=== PATIENT | male | born 1980 | race Caucasian/White ===

== ENCOUNTER 2021-03-08 20:26 | Emergency (ER) | payer MEDICAID, SELFPAY ==
[~2021-03-08] VITALS: Ht 172.7 cm; Wt 58.1 kg
[2021-03-08 20:50] VITALS: BP_SYST 116
--- NOTE | 2021-03-08 21:42 | NUR ---
PT ARRIVED TO ER FOR COMPLAINTS OF BILATERAL KNEE AND ANKLE SWEELING X 3 YEARS. PT IS HOMELESS AND HAS BEEN WALKING ALOT AND STATED "IM JUST LAYING DOWN ALL DAY BECAUSE IT HURTS SO MUCH". CLAIMS HE HAS BEEN WALKING AROUND WITH A SUITCASE FOR OVER 2 YEARS AND THINKS THAT MAY AHVE CUASED THE SWELLING. IN COMFORT, PT HAS NO PAIN. WHEN WALKING IT IS 7/10.
[2021-03-08] MEDS ORDERED: ACETAMINOPHEN 500 MG TABLET PO ONE (22:30)
--- NOTE | 2021-03-08 22:30 | NUR ---
ER at bedside examining patient.
--- NOTE | 2021-03-08 22:50 | NUR ---
Patient does not wish to proceed with medical care recommended by DR. VALDEZ. Patient given information related to possible complications, up to and including , which could occur as a result of leaving hospital at this time. Patient verbalizes understanding of risks involved leaving against medical advice. Patient has signed AMA form.
[2021-03-09 03:06] VITALS: BP_SYST 116
== END 2021-03-08 22:53 | disposition left against medical advice (07) ==
LOC: SED 20:26
DX: F15.229 Other stimulant dependence with intoxication, unspecified (principal); I25.5 Ischemic cardiomyopathy; Z20.822 Contact with and (suspected) exposure to COVID-19
CPT/HCPCS: 36415; 93005; 99284

== ENCOUNTER 2021-03-20 17:05 | Emergency (ER) | payer MEDICAID, SELFPAY ==
[~2021-03-20] VITALS: Ht 157.5 cm; Wt 62.6 kg
[2021-03-20 17:23] VITALS: BP_SYST 106
--- NOTE | 2021-03-20 17:30 | NUR ---
Pt brought by self, A&Ox4, pt presents to ER with bodyaches, weakness, VSS, respirations even and unlabored, cap refill <3, VSS.
--- NOTE | 2021-03-20 17:30 | NUR ---
Note luis enriqueone in EDM - 03/20/21 at 2119 by [email or web address] Patient triaged and placed in waiting room. VSS and patient appears in no acute distress at this time. Accompanied by self, awaiting available bed, and MD notified of need for MSE.
[2021-03-20] MEDS ORDERED: IBUPROFEN 800 MG TABLET PO ONE (18:30)
[2021-03-20] MEDS ORDERED: HYDROcodone/ACETAMIN 10-325 MG TAB PO ONE (18:30)
--- NOTE | 2021-03-20 18:30 | NUR ---
Dr Claudio evaluating patient at bedside
[2021-03-20 19:41] LABS: BASOPHILS % (AUTO) 0.3 % (0.0-2.0); EOSINOPHILS % (AUTO) 0.2 % (0.0-4.0); HEMATOCRIT 24.5 % (36-54); HEMOGLOBIN 7.6 g/dL (14.0-18.0); LYMPHOCYTES % (AUTO) 37.8 % (20.5-51.5); MEAN CORPUSCULAR HEMOGLOBIN 23 pg (27-31); MEAN CORPUSCULAR HGB CONC 31 % (32-36); MEAN CORPUSCULAR VOLUME 75 fL (79.0-98.0); MONOCYTES # (AUTO) 0.4 K/uL (0.0-1.0); MONOCYTES % (AUTO) 8.1 % (1.7-9.3); NEUTROPHILS # (AUTO) 2.8 K/uL (1.8-7.7); NEUTROPHILS % (AUTO) 53.6 % (40.0-70.0); PLATELET COUNT (AUTO) 463 K/uL (130-430); RED BLOOD CELL COUNT(AUTO) 3.28 MIL/uL (4.2-6.2); RED CELL DISTRIBUTION WIDTH 16.6 % (9.0-15.0); WHITE BLOOD COUNT (AUTO) 5.3 K/uL (4.8-10.8)
[2021-03-20 20:43] LABS: ERYTHROCYTE SEDIMENTATION RATE 108 MM/HR (0-15)
[2021-03-20 21:05] LABS: INR 1.1 (0.80-1.20); PROTHROMBIN TIME 11.5 SECS (9.5-12.5)
[2021-03-20 21:10] LABS: POTASSIUM 3.8 mmol/L (3.5-5.1)
[2021-03-20 21:11] LABS: CALCIUM 8.6 mg/dL (8.4-11.0); CREATININE 0.77 mg/dL (0.55-1.30); TOTAL BILIRUBIN 0.1 mg/dL (0.0-1.0); URIC ACID 1.6 mg/dL (2.4-7.0)
--- NOTE | 2021-03-20 21:30 | NUR ---
Placed in room 04 . Placed on safety analyst, blood pressure machine and pulse oximeter. To gown for exam. Side rails up.
[2021-03-20] MEDS ORDERED: HYDR-3917 PO (21:37)
[2021-03-20] MEDS ORDERED: IBUP-1971 PO (21:37)
[2021-03-20] MEDS ORDERED: PRED20TA PO (21:39)
[2021-03-20 21:54] LABS: C-REACTIVE PROTEIN QUANT 9.5 mg/dL (0-0.5)
--- NOTE | 2021-03-20 22:33 | NUR ---
PT DISCHGED WITH AFTERCARE INSTRUCTIONS TO AUTO STABLE
[2021-03-20 22:35] VITALS: BP_SYST 122
== END 2021-03-20 22:35 | disposition home or self-care (01) ==
LOC: SED 17:05
DX: M13.0 Polyarthritis, unspecified (principal)
CPT/HCPCS: 36415; 73560-TC; 80053; 84550; 85025; 85610-TC; 85651-TC; 85730-TC; 86140; 99284

== ENCOUNTER 2021-03-23 20:09 | Emergency (ER) | payer MEDICAID, SELFPAY ==
[~2021-03-23] VITALS: Ht 172.7 cm; Wt 54.4 kg
[~2021-03-23 20:09] MED LIST: HYDR-3917 PO; IBUP-1971 PO; PRED20TA PO
[2021-03-23 20:15] VITALS: BP_SYST 135
--- NOTE | 2021-03-23 20:15 | NUR ---
Patient triaged and placed in waiting room. VSS and patient appears in no acute distress at this time. Accompanied by FATHER, awaiting available bed, and MD notified of need for MSE.
--- NOTE | 2021-03-23 23:30 | NUR ---
CALLED PT NAME IN THE WR.NO ANSWER.
--- NOTE | 2021-03-23 23:35 | NUR ---
CALLED PT NAME IN THE WR.NO ANSWER.
--- NOTE | 2021-03-23 23:40 | NUR ---
CALLED PT NAME IN THE WR.NO ANSWER.
== END 2021-03-23 23:40 | disposition left against medical advice (07) ==
LOC: SED 20:09
DX: R10.9 Unspecified abdominal pain (principal); Z53.21 Procedure and treatment not carried out due to patient leaving prior to being seen by health care provider